=== PATIENT | male | born 1975 | race Caucasian/White ===

== ENCOUNTER 2017-08-17 18:16 | Emergency (ER) | payer OTHER ==
[~2017-08-17] VITALS: Ht 180.3 cm; Wt 97.5 kg
[2017-08-17] MEDS ORDERED: NOVOLIN R100 UNIT/1 SUBQ (18:27)
[2017-08-17] MEDS ORDERED: NOVOLIN N100 UNIT/1 SUBQ (18:28)
[2017-08-17 20:21] VITALS: BP 147/88
== END 2017-08-17 20:28 | disposition home or self-care (01) ==
LOC: M.ERS 18:16
DX: E11.649 Type 2 diabetes mellitus with hypoglycemia without coma (principal); T38.3X5A Adverse effect of insulin and oral hypoglycemic [antidiabetic] drugs, initial encounter; R42 Dizziness and giddiness; Z79.4 Long term (current) use of insulin; Y92.89 Other specified places as the place of occurrence of the external cause